=== PATIENT | female | born 1960 | race Two or more races ===

== ENCOUNTER 2017-03-25 08:41 | Day surgery (SDC) | payer MEDICARE ==
[~2017-03-25 08:41] MED LIST: LACTATED RINGERS 1,000 ML IV SCH
[2017-03-25] MEDS ORDERED: IV START KIT ONE (09:15)
[2017-03-25] MEDS ORDERED: LACTATED RINGERS 1,000 ML ONE (09:15)
[2017-03-25] MEDS ORDERED: PROPOFOL 40 ML IV ONE (09:41)
[2017-03-25] MEDS ORDERED: LIDOCAINE Viscous 2% 15 ML UDCUP ONE (09:42)
[2017-03-25 14:51] LABS: HELICOBACTER PYLORII DETECTION NEGATIVE (NEGATIVE)
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
== END 2017-03-25 11:22 | disposition home or self-care (01) ==
LOC: SDC 08:41
PROVIDERS: ATTEND Internal Medicine Gastroenterology
PROC: 0DB98ZX Excision of Duodenum, Via Natural or Artificial Opening Endoscopic, Diagnostic (ICD-10-PCS; principal; 2017-03-25)
PROC: 0DB68ZX Excision of Stomach, Via Natural or Artificial Opening Endoscopic, Diagnostic (ICD-10-PCS; 2017-03-25)
PROC: 0DBN8ZX Excision of Sigmoid Colon, Via Natural or Artificial Opening Endoscopic, Diagnostic (ICD-10-PCS; 2017-03-25)
DX: Z12.11 Encounter for screening for malignant neoplasm of colon (principal); D12.5 Benign neoplasm of sigmoid colon; K29.70 Gastritis, unspecified, without bleeding; K29.80 Duodenitis without bleeding; Z80.0 Family history of malignant neoplasm of digestive organs; Z83.71 Family history of colonic polyps; F17.210 Nicotine dependence, cigarettes, uncomplicated; I10 Essential (primary) hypertension; M19.90 Unspecified osteoarthritis, unspecified site; E78.5 Hyperlipidemia, unspecified; D68.51 Activated protein C resistance; Z86.73 Personal history of transient ischemic attack (TIA), and cerebral infarction without residual deficits
CPT/HCPCS: 87081; 43239; 45385; A9270; J7120